=== PATIENT | male | born 1985 | race Caucasian/White ===

== ENCOUNTER 2016-10-31 22:27 | Inpatient (IN) | payer MEDICAID, OTHER ==
[~2016-10-31] VITALS: Ht 177.8 cm; Wt 63.8 kg
[2016-11-01 00:01] LABS: BASOPHILS # (AUTO) 0.04 K/uL (0.00-0.20); BASOPHILS % (AUTO) 0.4 % (0.0-2.0); EOSINOPHILS # (AUTO) 0.45 K/uL (0.00-0.70); EOSINOPHILS % (AUTO) 3.97 % (1.0-6.0); HEMATOCRIT 36.6 % (41-53); HEMOGLOBIN 12.3 g/dL (13.5-17.5); LYMPHOCYTES # (AUTO) 2.8 K/uL (1.0-4.8); LYMPHOCYTES % (AUTO) 24.8 % (22.0-44.0); MEAN CORPUSCULAR HEMOGLOBIN 28.5 pg (26.0-34.0); MEAN CORPUSCULAR HGB CONC 33.5 G/dL (31.0-37.0); MEAN CORPUSCULAR VOLUME 85 fL (80-100); MONOCYTES # (AUTO) 1.1 K/uL (0.1-1.0); MONOCYTES % (AUTO) 9.2 % (2.0-9.0); NEUTROPHILS % (AUTO) 61.6 % (40.0-70.0); PLATELET COUNT (AUTO) 282 K/uL (150-450); RED BLOOD CELL COUNT(AUTO) 4.31 MIL/uL (4.50-5.90); RED CELL DISTRIBUTION WIDTH 13.4 % (11.5-14.5); WHITE BLOOD COUNT (AUTO) 11.4 K/uL (4.5-11.0)
[2016-11-01] MEDS ORDERED: QUET100T PO (00:07)
[2016-11-01] MEDS ORDERED: HIV MED PO (00:07)
[2016-11-01 00:14] LABS: ANION GAP 6 mmol/L (8-16); CALCIUM, TOTAL 8.8 mg/dL (8.8-10.5); CARBON DIOXIDE 29 mmol/L (22-29); CHLORIDE 106 mmol/L (98-107); CREATININE 0.98 mg/dL (0.60-1.30); GLOMERULAR FILTR. RATE CALC > 60 mL/min (>60); POTASSIUM 3.8 mmol/L (3.5-5.1); SODIUM SERUM 141 mmol/L (136-145); UREA NITROGEN, BLOOD 11 mg/dL (7-18)
[2016-11-01 00:20] LABS: ALANINE AMINOTRANSFERASE 23 U/L (12-78); ALBUMIN 3.4 g/dL (3.4-5.0); ASPARTATE AMINOTRANSFERASE 15 U/L (15-37); BILIRUBIN,TOTAL 0.1 mg/dL (0.1-1.0); TOTAL PROTEIN, SERUM 7.5 g/dL (6.4-8.2)
[2016-11-01] MEDS ORDERED: DiphenhydrAMINE HCL 25 MG CAPSULE PO ONE (01:00)
[2016-11-01] MEDS ORDERED: LORazepam 2 MG TABLET PO ONE (01:00)
[2016-11-01] MEDS ORDERED: HALOPERIDOL 5 MG TABLET PO PRN (02:30)
[2016-11-01] MEDS ORDERED: LORazepam 2 MG TABLET PO PRN (02:30)
[2016-11-01] MEDS ORDERED: ZOLPIDEM TARTRATE 10 MG TABLET PO PRN (02:30)
[2016-11-01 04:15] VITALS: BP 129/85
[2016-11-01 04:36] LABS: APPEARANCE,URINE CLOUDY (CLEAR); GLUCOSE, URINE (UA) NEGATIVE (NEGATIVE); KETONES,URINE NEGATIVE (NEGATIVE); LEUKOCYTE ESTERASE ,URINE NEGATIVE (NEGATIVE); OCCULT BLOOD,URINE NEGATIVE (NEGATIVE); PH,URINE 7.5 (5.0-8.0); PROTEIN,URINE NEGATIVE (NEGATIVE)
[2016-11-01 04:39] LABS: ADD UA MICROSCOPIC NO
[2016-11-01] MEDS ORDERED: CloNIDine HCL 0.1 MG TABLET PO PRN (09:30)
[2016-11-01] MEDS ORDERED: MAG HYDROX/AL HYDROX/SIMETH ES 30 ML SUSPENSION UDCUP PO PRN (09:30)
[2016-11-01] MEDS ORDERED: PETROLATUM,WHITE 71 GM JELLY TP PRN (09:30)
[2016-11-01] MEDS ORDERED: ACETAMINOPHEN 325 MG TABLET PO PRN (09:30)
[2016-11-01] MEDS ORDERED: BACITRACIN 28.4 GM OINTMENT TP PRN (09:30)
[2016-11-01] MEDS ORDERED: ALBUTEROL SULFATE HFA 90 MCG/PUFF 8 GM INHALER IH PRN (09:30)
[2016-11-01] MEDS ORDERED: ONDANSETRON HCL 4 MG TABLET PO PRN (09:30)
[2016-11-01] MEDS ORDERED: MAGNESIUM HYDROXIDE SUSPENSION 30 ML UDCUP PO PRN (09:30)
[2016-11-01] MEDS ORDERED: IBUPROFEN 600 MG TABLET PO PRN (09:30)
[2016-11-01] MEDS ORDERED: LOPERAMIDE HCL 2 MG CAPSULE PO PRN (09:30)
[2016-11-01] MEDS ORDERED: BENZOCAINE/MENTHOL LOZENGE [8 LOZENGES/PACKET] MM PRN (09:30)
[2016-11-01] MEDS ORDERED: QUEtiapine FUMARATE 100 MG TABLET PO SCH (21:00)
[2016-11-01] MEDS: HALOPERIDOL 5 MG TABLET PO SCH (21:22)
[2016-11-01] MEDS: BENZTROPINE MESYLATE 0.5 MG TABLET PO SCH (21:22)
[2016-11-01 22:01] VITALS: BP 119/76
[2016-11-02 09:13] VITALS: BP_SYST 106
[2016-11-02] MEDS: BENZTROPINE MESYLATE 0.5 MG TABLET PO SCH ×2 (10:05→20:16)
[2016-11-02] MEDS: HALOPERIDOL 5 MG TABLET PO SCH ×2 (10:05→20:16)
[2016-11-02] MEDS ORDERED: GENVOYA 150/150/200/10MG TABLET CLINICAL SCH (12:00)
[2016-11-02] MEDS: GENVOYA 150/150/200/10MG TABLET PO SCH (12:40)
[2016-11-02 17:12] VITALS: BP 101/65
[2016-11-03] MEDS: GENVOYA 150/150/200/10MG TABLET PO SCH (06:44)
[2016-11-03 08:04] VITALS: BP 114/65
[2016-11-03] MEDS: HALOPERIDOL 5 MG TABLET PO SCH ×2 (08:56→20:18)
[2016-11-03] MEDS: BENZTROPINE MESYLATE 0.5 MG TABLET PO SCH ×2 (08:56→20:18)
[2016-11-03 18:00] VITALS: BP 110/68
[2016-11-04] MEDS: GENVOYA 150/150/200/10MG TABLET PO SCH (06:30)
[2016-11-04 08:04] VITALS: BP 125/70
[2016-11-04] MEDS: HALOPERIDOL 5 MG TABLET PO SCH ×2 (08:56→20:48)
[2016-11-04] MEDS: BENZTROPINE MESYLATE 0.5 MG TABLET PO SCH ×2 (08:56→20:47)
[2016-11-04 16:42] VITALS: BP 129/80
[2016-11-05] MEDS: GENVOYA 150/150/200/10MG TABLET PO SCH (06:38)
[2016-11-05] MEDS ORDERED: FERROUS SULFATE 325 MG EC TABLET PO SCH (07:30)
[2016-11-05] MEDS: BENZTROPINE MESYLATE 0.5 MG TABLET PO SCH (08:57)
[2016-11-05] MEDS: HALOPERIDOL 5 MG TABLET PO SCH (08:57)
[2016-11-05 09:21] VITALS: BP 105/69
[2016-11-05] MEDS ORDERED: BENZ0.5T6 PO (10:20)
[2016-11-05] MEDS ORDERED: HALO5 PO (10:27)
[2016-11-05] MEDS ORDERED: FERR-89 PO (10:30)
== END 2016-11-05 11:30 | disposition home or self-care (01) | DRG 751 ==
LOC: EMS 22:30 → 3EI 11-01 02:30
PROVIDERS: ADMIT Psychiatry & Neurology Psychiatry; ATTEND Psychiatry & Neurology Psychiatry
DX: F29 Unspecified psychosis not due to a substance or known physiological condition (principal); F33.2 Major depressive disorder, recurrent severe without psychotic features; F15.20 Other stimulant dependence, uncomplicated; F25.9 Schizoaffective disorder, unspecified; F12.90 Cannabis use, unspecified, uncomplicated; F17.200 Nicotine dependence, unspecified, uncomplicated; R45.87 Impulsiveness; F19.10 Other psychoactive substance abuse, uncomplicated; Z59.0 Homelessness; Z91.19 Patient's noncompliance with other medical treatment and regimen; Z71.6 Tobacco abuse counseling; Z71.51 Drug abuse counseling and surveillance of drug abuser
CPT/HCPCS: 87081; 99285; G0480